=== PATIENT | male | born 1985 | race Caucasian/White ===

== ENCOUNTER 2017-10-22 01:27 | Emergency (ER) | payer OTHER ==
[~2017-10-22] VITALS: Ht 198.1 cm; Wt 115.0 kg
[2017-10-22 01:33] VITALS: BP 186/117; PULSE 106; RESP 18; TEMP 98.7; O2SAT 95
[2017-10-22] MEDS ORDERED: SODIUM CHLOR 0.9% 1000 ML INJ 1,000 ML IV SCH (01:49)
[2017-10-22] MEDS ORDERED: ceFAZolin 2 GM PREMIX 50 ML IV ONE (02:00)
[2017-10-22] MEDS ORDERED: TETANUS/DIPHTHERIA TOXOID ADULT 0.5 ML VIAL IM ONE (02:00)
[2017-10-22] MEDS ORDERED: SODIUM CHLORIDE 0.9% FLUSH 10 ML FLUSH IVF PRN (02:00)
[2017-10-22 02:18] LABS: AUTOMATED NEUTROPHIL # 4.1 TH/MM3 (1.8-7.7); BASOPHIL # 0.1 TH/MM3 (0-0.2); EOSINOPHIL # 0.1 TH/MM3 (0-0.4); HEMATOCRIT 39.9 % (39.0-51.0); HEMO FLAGS DIFF FINAL; LYMPH % 25.9 % (9.0-44.0); LYMPHOCYTE # 1.7 TH/MM3 (1.0-4.8); MEAN CELL VOLUME 98.9 FL (80.0-100.0); MEAN CORPUSCULAR HEMOGLOBIN 34.6 PG (27.0-34.0); MONO % 10.3 % (0.0-8.0); NEUT % 61.8 % (16.0-70.0); PLATELET COUNT 154 TH/MM3 (150-450); RED BLOOD COUNT 4.04 MIL/MM3 (4.50-5.90); WHITE BLOOD COUNT 6.6 TH/MM3 (4.0-11.0)
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
[2017-10-22 03:02] LABS: BICARBONATE 26.5 MEQ/L (21.0-32.0); POTASSIUM 3.9 MEQ/L (3.5-5.1)
[2017-10-22 03:09] LABS: APTT (PATIENT) 24.2 SEC (24.3-30.1); PROTHROMBIN TIME - PATIENT 10.2 SEC (9.8-11.6)
[2017-10-22] MEDS ORDERED: IOHEXOL 350 MG/ML 10 ML VIAL (for RAD DIAG) IVCONTRAST ONE (03:41)
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
[2017-10-22 04:56] LABS: BLOOD, URINE SMALL (NEG); COMMENT (UR) CULT NOT INDICATED; CULTURE IF INDICATED CULT NOT INDICATED; GLUCOSE,URINE NEG (NEG); KETONE, URINE NEG (NEG); NITRITE,URINE NEG (NEG); PH, URINE 5.5 (5.0-8.5); URINE COLOR LIGHT-YELLOW (YELLW/STRAW)
[2017-10-22] MEDS ORDERED: LIDOCAINE HCL 1% 50 ML VIAL INFIL ONE (05:00)
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
[2017-10-22 05:14] VITALS: BP 146/80; PULSE 92; RESP 18; TEMP 98.1; O2SAT 100
[2017-10-22] MEDS ORDERED: ZOFR4TAB3 SL (05:28)
[2017-10-22] MEDS ORDERED: PERC2.5T PO (05:28)
[2017-10-22] MEDS ORDERED: KETOROLAC TROMETHAMINE 30 MG/ML (IVP) VIAL IV PUSH ONE (05:30)
--- NOTE | 2017-10-22 05:59 | PD ---
Physical Exam Time Seen by Provider: 05:30 Data Data Last Documented VS Vital Signs Date Time Temp Pulse Resp B/P (MAP) Pulse Ox O2 Delivery O2 Flow Rate FiO2 10/22/17 05:14 98.1 92 18 146/80 (102) 100 Room Air Orders Orders Basic Metabolic Panel (Bmp) (10/22/17 01:49) Complete Blood Count With Diff (10/22/17 01:49) Prothrombin Time / Inr (Pt) (10/22/17 01:49) Act Partial Throm Time (Ptt) (10/22/17 01:49) Type And Screen (10/22/17 01:49) Alcohol (Ethanol) (10/22/17 01:49) Urinalysis - C+S If Indicated (10/22/17 01:49) Ct Brain W/O Iv Contrast(Rout) (10/22/17 01:49) Ct Cerv Spine W/O Contrast (10/22/17 01:49) Ct Abd/Pel W Iv Contrast(Rout) (10/22/17 01:49) Ct Facial Bones W/O Iv Cont (10/22/17 01:49) Iv Access Insert/Monitor (10/22/17 01:49) Ecg Monitoring (10/22/17 01:49) Oximetry (10/22/17 01:49) Oxygen Administration (10/22/17 01:49) Cefazolin 2 Gm Premix (Ancef 2 Gm Premix (10/22/17 02:00) Sodium Chlor 0.9% 1000 Ml Inj (Ns 1000 M (10/22/17 01:49) Sodium Chloride 0.9% Flush (Ns Flush) (10/22/17 02:00) Drug Screen, Random Urine (10/22/17 01:49) Ice/Cold Pack (10/22/17 01:49) Tetanus/Diphtheria Tox Adult (Tetanus/Di (10/22/17 02:00) Iohexol 350 Inj (Omnipaque 350 Inj) (10/22/17 03:41) Ribs, Uni (W/Exp Cxr-Min 3vw) (10/22/17 ) Lidocaine 1% Inj (50 Ml) (Xylocaine 1% I (10/22/17 05:00) Ketorolac Inj (Toradol Inj) (10/22/17 05:30) Ed Discharge Order (10/22/17 05:33) Labs Laboratory Tests Test 10/22/17 02:05 10/22/17 04:30 White Blood Count 6.6 TH/MM3 Red Blood Count 4.04 MIL/MM3 Hemoglobin 14.0 GM/DL Hematocrit 39.9 % Mean Corpuscular Volume 98.9 FL Mean Corpuscular Hemoglobin 34.6 PG Mean Corpuscular Hemoglobin Concent 35.0 % Red Cell Distribution Width 13.0 % Platelet Count 154 TH/MM3 Mean Platelet Volume 8.7 FL Neutrophils (%) (Auto) 61.8 % Lymphocytes (%) (Auto) 25.9 % Monocytes (%) (Auto) 10.3 % Eosinophils (%) (Auto) 1.0 % Basophils (%) (Auto) 1.0 % Neutrophils # (Auto) 4.1 TH/MM3 Lymphocytes # (Auto) 1.7 TH/MM3 Monocytes # (Auto) 0.7 TH/MM3 Eosinophils # (Auto) 0.1 TH/MM3 Basophils # (Auto) 0.1 TH/MM3 CBC Comment DIFF FINAL Differential Comment Prothrombin Time 10.2 SEC Prothromb Time International Ratio 1.0 RATIO Activated Partial Thromboplast Time 24.2 SEC Blood Urea Nitrogen 10 MG/DL Creatinine 0.88 MG/DL Random Glucose 100 MG/DL Calcium Level 7.9 MG/DL Sodium Level 144 MEQ/L Potassium Level 3.9 MEQ/L Chloride Level 109 MEQ/L Carbon Dioxide Level 26.5 MEQ/L Anion Gap 9 MEQ/L Estimat Glomerular Filtration Rate 100 ML/MIN Ethyl Alcohol Level 342 MG/DL Urine Color LIGHT-YELLOW Urine Turbidity CLEAR Urine pH 5.5 Urine Specific [place] 1.042 Urine Protein 30 mg/dL Urine Glucose (UA) NEG mg/dL Urine Ketones NEG mg/dL Urine Occult Blood SMALL Urine Nitrite NEG Urine Bilirubin NEG Urine Urobilinogen LESS THAN 2.0 MG/DL Urine Leukocyte Esterase NEG Urine RBC 4 /hpf Urine WBC 1 /hpf Microscopic Urinalysis Comment CULT NOT INDICATED MDM Medical Record Reviewed: Yes Supervised Visit with GEORGE: No Narrative Course This patient presents with facial lacerations which I was asked to repair. He verbally consents. Procedures Procedure Narrative Location: Face Length: 1 cm Number of lamonte/sutures: 3 The area was prepped with Betadine. The area was anesthetized locally with 1% lidocaine The area was thoroughly irrigated and explored with no signs of tendon , vascular injury or foreign body. The wound was closed using 6-0 PROLENE simple interrupted. This was a single layer repair. Patient tolerated procedure well Location: Face Length: 2 cm Number of lamonte/sutures: 7 The area was prepped with Betadine. The area was anesthetized locally with 1% lidocaine The area was thoroughly irrigated and explored with no signs of tendon , vascular injury or foreign body. The wound was closed using 6-0 PROLENE simple interrupted. This was a single layer repair. Patient tolerated procedure well Location: Face Length: 1 cm Number of lamonte/sutures: 2 The area was prepped with Betadine. The area was anesthetized locally with 1% lidocaine The area was thoroughly irrigated and explored with no signs of tendon , vascular injury or foreign body. The wound was closed using 6-0 PROLENE simple interrupted. This was a single layer repair. Patient tolerated procedure well Diagnosis Primary Impression: Facial contusion Qualified Codes: S00.83XA - Contusion of other part of head, initial encounter Additional Impressions: Closed fracture of transverse process of lumbar vertebra Qualified Codes: S32.009A - Unspecified fracture of unspecified lumbar vertebra, initial encounter for closed fracture Left rib fracture Qualified Codes: S22.32XA - Fracture of one rib, left side, initial encounter for closed fracture Facial laceration Qualified Codes: S01.81XA - Laceration without foreign body of other part of head, initial encounter Alcohol ingestion Referrals: Primary Care Physician 2 days Patient Instructions: General Instructions Additional Instruction: Do not drink alcoholic beverages Increase fluid hydration Wound check at 2 days with suture removal at 5-7 days Take acetaminophen as needed for pain or for fever 100.4F or greater Take pain medication as prescribed as needed Follow-up with your primary care provider Return to the emergency for free concerns or change in condition Scripts Ondansetron Odt (Zofran Odt) 4 Mg Tab 4 MG SL Q6HR Y for Nausea/Vomiting, #10 TAB 0 Refills Prov: Mónica Jaimes MD 10/22/17 Oxycodone-Acetaminophen (Percocet) 2.5-325 mg Tab 1 TAB PO Q6H Y for PAIN GREATER THAN 5, #12 TAB 0 Refills Prov: Mónica Jaimes MD 10/22/17 Disposition: 01 DISCHARGE HOME Condition: Stable Nino Saenz Oct 22, 2017 05:59
== END 2017-10-22 06:37 | disposition home or self-care (01) ==
LOC: NEPC 01:27 → EDBD 01:27 → NEPC 06:37
DX: S32.018A Other fracture of first lumbar vertebra, initial encounter for closed fracture (principal); S32.028A Other fracture of second lumbar vertebra, initial encounter for closed fracture; S22.32XA Fracture of one rib, left side, initial encounter for closed fracture; S01.412A Laceration without foreign body of left cheek and temporomandibular area, initial encounter; S01.81XA Laceration without foreign body of other part of head, initial encounter; R10.9 Unspecified abdominal pain; R55 Syncope and collapse; Y00.XXXA Assault by blunt object, initial encounter; Z23 Encounter for immunization
CPT/HCPCS: 12013; 70450; 70486; 71101; 72125; 74177; 80048; 80307; 81001; 85025; 85610; 85730; 86850; 86900; 86901; 90471; 90714; 96365; 96366; 96375; 99285; J0690; J1885; J7030; Q9967